=== PATIENT | female | born 1995 | race Caucasian/White ===

== ENCOUNTER 2018-08-27 12:58 | Outpatient (CLI) | payer BC ==
--- NOTE | 2018-08-31 14:07 | OBOUT ---
DATE: 08/27/2018 DATE AND TIME OF NST: Date: 08/27/2018. Time: 1410 hours to 1430 hours. REASON FOR NST: 1. Intrauterine at 35 weeks. 2. Gestational diabetes mellitus - diet controlled. 3. Rh negative, RhoGAM given appropriately. 4. G2, P1-0-0-1. 5. Previous , requests repeat low transverse . NST INTERPRETATION: During this time period, heart tone baseline is approximately 130, and monitoring has some broken up areas, but there are at least two 15 x 15 beat per minute accelerations making this strip reactive and also noted to be reassuring. Tocometer reveals potential of 5 contractions during this time period, none felt by the patient. movement documented. ASSESSMENT/PLAN: 1. Non-stress test - reactive and reassuring. 2. Tocometer with contractions. PLAN: Continue testing. We will continue to follow clinically and closely. As part of the workup, she did have a biophysical profile, scores a 10/10 with the above, ANNA was 18 cm, and estimated weight on ultrasound was 2910 g, 6 pounds 7 ounces. Please see clinic notes for further details as well. We will continue testing. [facility] /[id number]
== END 2018-08-27 15:00 | disposition home or self-care (01) ==
LOC: DL.US 12:58
PROVIDERS: ATTEND Family Medicine
DX: O24.419 Gestational diabetes mellitus in pregnancy, unspecified control (principal); Z3A.36 36 weeks gestation of pregnancy; O24.410 Gestational diabetes mellitus in pregnancy, diet controlled; O34.219 Maternal care for unspecified type scar from previous cesarean delivery; Z3A.35 35 weeks gestation of pregnancy
CPT/HCPCS: 59025; 76816; 76819

== ENCOUNTER 2018-08-28 23:31 | Inpatient (IN) | payer BC ==
[2018-08-29] MEDS ORDERED: Naloxone 2 MG/2 ML Syringe IVPUSH PRN (00:39)
[2018-08-29] MEDS ORDERED: Ondansetron 4 MG/2 ML SDV IV PRN (00:39)
[2018-08-29] MEDS ORDERED: diphenhydrAMINE 50 MG/ML SDV IVPUSH PRN (00:39)
[2018-08-29] MEDS ORDERED: ePHEDrine 50 MG/ML SDV IVPUSH PRN (00:39)
[2018-08-29] MEDS ORDERED: Measles, Mumps & Rubella Vaccine 0.5 ML SDV SUBCUT ONE (00:39)
[2018-08-29] MEDS ORDERED: Carboprost Tromethamine 250 MCG/1 ML Amp IM ONE (00:39)
[2018-08-29] MEDS ORDERED: Citric Acid/Sodium Citrate Solution 30 ML Cup PO ONE (00:39)
[2018-08-29] MEDS ORDERED: Methylergonovine 0.2 MG/1 ML Amp IM PRN (00:39)
[2018-08-29] MEDS ORDERED: Misoprostol 400 MCG (4 X 100 MCG TAB) RECTAL PRN (00:39)
[2018-08-29] MEDS ORDERED: Acetaminophen/oxyCODONE 325-5 MG Tab PO PRN ×2 (00:39)
[2018-08-29] MEDS ORDERED: ceFAZolin 2 GM in Premix Bag 1 BAG IV ONE (00:39)
[2018-08-29] MEDS ORDERED: Sodium Chloride 0.9% 10 ML Syringe FLUSH PRN (00:39)
[2018-08-29] MEDS ORDERED: Tranexamic Acid 1,000 MG in Sodium Chloride 0.9% 100 ML IV PRN ×4 (00:39)
[2018-08-29] MEDS ORDERED: Acetaminophen 325 MG Tab PO PRN (00:39)
[2018-08-29] MEDS ORDERED: Lactated Ringers 1,000 ML IV SCH ×2 (00:45)
[2018-08-29] MEDS ORDERED: Oxytocin/Normal Saline 30 UNIT/500 ML BAG IV SCH ×2 (00:45→05:15)
[2018-08-29] MEDS: Lactated Ringers 1,000 ML IV SCH ×3 (01:14→05:58)
[2018-08-29] MEDS: Simethicone 80 MG Tab.Chew PO SCH ×4 (08:49→21:08)
[2018-08-29] MEDS: Ketorolac 30 MG/ML SDV IVPUSH SCH ×3 (08:49→21:05)
[2018-08-29] MEDS: Prenatal Multivitamin with Calcium/Folic Acid/Iron Tab PO SCH (08:49)
[2018-08-29] MEDS: Docusate Sodium 100 MG Cap PO PRN ×2 (13:58→21:08)
[2018-08-30] MEDS ORDERED: Ibuprofen 800 MG Tab PO PRN (04:30)
[2018-08-30] MEDS: Docusate Sodium 100 MG Cap PO PRN (09:08)
[2018-08-30] MEDS: Prenatal Multivitamin with Calcium/Folic Acid/Iron Tab PO SCH (09:08)
[2018-08-30] MEDS: Simethicone 80 MG Tab.Chew PO SCH (09:09)
[2018-08-30] MEDS ORDERED: Morphine PF 1 MG/ML Amp ONE (12:14)
[2018-08-30] MEDS ORDERED: Ondansetron 4 MG/2 ML SDV IV ONE (12:14)
[2018-08-30] MEDS ORDERED: ePHEDrine 50 MG/ML SDV IV ONE (12:14)
[2018-08-30] MEDS ORDERED: Ketorolac 30 MG/ML SDV IVPUSH ONE (12:14)
--- NOTE | 2018-08-31 11:01 | HP ---
PATIENT IDENTIFICATION: Gina Chung is a 22-year-old G2, P1-0-0-1, intrauterine at 35 and 1/7th weeks by 9-week ultrasound, who presents with vaginal leaking. HISTORY OF PRESENT ILLNESS: The patient presents with vaginal leaking, described as clear in nature, started at 11:30 p.m. on the date of admission, occurred while she was lying down, soaked through all her clothing as well as her bedding and continued leaking thereafter. Associated with this has been some contractions that are getting stronger, felt in the lower abdomen, and coming more often. To put this in context, she had a previous , requests repeat low transverse ; gestational diabetes mellitus that is diet controlled; rh negative, received RhoGAM appropriately; GBS is pending in [place] and is rubella nonimmune with anemia of , and has allergies to amoxicillin and Zithromax but can take cephalosporins. Records were called for, reviewed as below, and supplemented by the patient's history. ANTEPARTUM LABORATORY DATA: ABO blood type A negative. Negative antibody. Rubella nonimmune. Syphilis antibody is nonreactive. Negative hepatitis B surface antigen. Negative hep C, HIV, GC, and Chlamydia. Wet prep within normal limits. One-hour GTT was 151 with 3-hour GTT being positive for gestational diabetes mellitus. Last hemoglobin charted 07/23/2018 at 10.8. OBSTETRICAL HISTORY: 02/23/2012, 40 and 5/7th weeks, delivered female via primary low transverse , weighing 3459 g, due to nonreassuring status. ALLERGIES: Amoxicillin and Zithromax listed, but can take cephalosporins and took them back in 02/2018 per chart review. Her allergies also listed as Zithromax that has an intolerance and not a true allergy. MEDICATIONS: vitamins and iron sulfate 325 b.i.d., as well as has been on Celexa. PAST MEDICAL/PAST SURGICAL HISTORY: Remarkable for as above. History of reactive airway disease and tonsillitis. FAMILY HISTORY: Mother with COPD. Maternal grandmother with cancer. Father with MS. Thyroid disease in a cousin. Negative family history of anesthesia problems, bleeding problems, or defects. SOCIAL HISTORY: Lives with her daughter and in [place]. Studying business in [place] in the spring. 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 Nonsmoker. No alcohol or drug use elicited. REVIEW OF SYSTEMS: Otherwise, reviewed and felt to be noncontributory other than the above. OBJECTIVE: Vital Signs: Blood pressure 135/83, heart rate 87. The patient feels afebrile. Appearance: Female, appears stated age, acting appropriate, nontoxic in appearance. HEENT: Head is atraumatic. EOMs intact. PERRLA. No scleral icterus. No obvious otorrhea or rhinorrhea. Mucous membranes moist. Neck: No obvious tenderness. Lungs: Clear to auscultation bilaterally. No increased work of breathing. Heart: S1 and S2. Regular rate and rhythm. Abdomen: Gravid. Pavel's indeterminate. Nontender and nondistended. Bowel sounds positive. No organomegaly, pulsatile masses, or hernias. No rebound, rigidity, or guarding. Monitors applied. Genitourinary: Normal external female genitalia. Normal position and presentation of the urethra. Vaginal exam reveals her to be 2 cm, 65% effaced, -1 station, vertex suspected, and clear copious fluid with gross rupture of membranes noted, leaking from the vaginal area. Extremities: Trace to 1+ pitting edema to proximal tibia. Deep tendon reflexes 1 to 2 out of 4 bilaterally and symmetric in the lower extremities. Psychiatric: Mood and affect congruent. Judgment and insight intact. Skin: Without any cyanosis, clubbing, or jaundice. LABORATORY DATA: Pending is a CBC, a blood glucose, and type and screen. heart tones are currently in the 140s to 150s baseline with recurrent variable decelerations at this point in time. At approximately 0006 hours to 0010 hours, there is approximately a 3-minute deceleration down in the 90s. Tocometer reveals contractions every 2 to 5 minutes apart. ASSESSMENT: 1. Intrauterine at 35 and 1/7th weeks by 9-week ultrasound. 2. Spontaneous rupture of membranes at 11:30 p.m. on the date of admission. 3. Contractions with cervical change. 4. Previous , requests repeat low transverse section. 5. Gestational diabetes mellitus - diet controlled. 6. Rh negative. Received RhoGAM appropriately. 7. Group B Streptococcus unknown and pending in [place]. 8. Rubella nonimmune. 9. History of anemia of . CBC to be drawn. 10.Allergies to amoxicillin and Zithromax with no true allergy listed to Zithromax in the chart, and the patient has taken cephalosporins in the past. 11.G2, P1-0-0-1. 12.Concerns with heart tones noted with a deceleration as well as recurrent variable decelerations with the previous section. 13.Mood disorder, requiring Celexa and currently on 20 mg daily in regard to this. PLAN: Did discuss with the patient given her heart tones and concerns with previous , request repeat low transverse , with contractions with cervical change, that she is not felt to be a transfer candidate. I did discuss this case with the commercial pest control representative, Dr. Olguin in [place]. He initially was going to send his team, but then the charge nurse in [place] told him that the patient's would not qualify for team to be here and would prefer us to deliver the baby and then call the NICU if we need help. I did discuss this with the patient. She understands and agrees, and we will deliver as soon as OR crew is ready and available and follow baby thereafter. I did discuss with the patient potential need for transfer to higher level of care in regard to her baby as well as separation in regard to the need for NICU if need be. She understands and agrees. I did discuss the risks, benefits, alternatives, complications of including, but not limited to, infection, bleeding, damage to internal organs such as bowel, bladder, tubes, uterus, ovaries, and sometimes fetus rarely needing a blood transfusion or further surgery, and rarer maternal or . She understands and agrees, and wishes to proceed. Verbal and written consent were obtained. Questions were answered. We will proceed as soon as OR crew is available. Last oral intake was at 2300 hours with fluid and prior to that she said 5:00 p.m. was the last time she ate anything solid. Her last blood sugar was between 70 and 90 to her recollection and that was later evening of the date of admission. [facility] /[id number] MTDD
--- NOTE | 2018-08-31 11:37 | PN ---
DATE: 08/30/2018 Postop day #1, status post repeat low transverse section. SUBJECTIVE: The patient is tolerating p.o., ambulating, urinating, passing flatus. Glass was removed earlier this morning. OBJECTIVE: Vital Signs: Temperature 97.8, heart rate 85, blood pressure 111/67, respiratory rate 20. Lungs: Clear to auscultation. Heart: S1-S2. Regular rate and rhythm. Abdomen: Firm uterus -1 below umbilicus. Aquacel dressing appears dry and intact. Extremities: Trace peripheral edema. No calf pain. LABORATORY DATA: White cell count 7.2, hemoglobin 10.2, dropped from 11 preoperatively, platelets of 142,000 dropped from 173,000 preoperatively. ASSESSMENT AND PLAN: 1. Postoperative day #1, status post repeat low transverse section. 2. Anemia of acute blood loss. Hemoglobin dropping down to 10.2. 3. Gestational/ thrombocytopenia. PLAN: We will continue to follow clinically and closely. Recheck CBC tomorrow. Did discuss with the patient's potential discharge for tomorrow as she wanted to get discharged to go see her baby who is in [place] at the NICU. The patient understands and agrees with the above treatment plan. [facility] /[id number]
--- NOTE | 2018-08-31 12:52 | OR ---
DATE: 08/29/2018 PREOPERATIVE DIAGNOSES: 1. Intrauterine at 35 and 2/7th weeks by 9-week ultrasound. 2. Spontaneous rupture of membranes at 2330 hours on 08/28/2018. 3. Contractions with cervical change. 4. Previous , requests repeat low transverse . 5. Not a transfer candidate. 6. Gestational diabetes mellitus - diet controlled. 7. Rh negative and received RhoGAM appropriately during the . 8. Group B streptococcus pending in [place]. 9. Rubella nonimmune. 10.Anemia of with hemoglobin 11 upon admission. 11.Allergies to amoxicillin and Zithromax, but can take cephalosporins. 12.Concerns with heart tones. 13.Mood disorder requiring Celexa 20 mg daily during the . 14. 2, para 1-0-0-1. POSTOPERATIVE DIAGNOSES: 1. Intrauterine at 35 and 2/7th weeks by 9-week ultrasound - delivered. 2. Spontaneous rupture of membranes at 2330 hours on 08/28/2018. 3. Contractions with cervical change. 4. Previous , requests repeat low transverse . 5. Not a transfer candidate. 6. Gestational diabetes mellitus - diet controlled. 7. Rh negative and received RhoGAM appropriately during the . 8. Group B streptococcus pending in [place]. 9. Rubella nonimmune. 10.Anemia of with hemoglobin 11 upon admission. 11.Allergies to amoxicillin and Zithromax, but can take cephalosporins. 12.Concerns with heart tones. 13.Mood disorder requiring Celexa 20 mg daily during the . 14. 2, para 1-0-0-1. 15.Nuchal cord x1, reduced bluntly with delivery. 16.Thin lower uterine segment. PROCEDURE PERFORMED: NST followed by repeat low transverse . MANAGER ADULT: Jefe Latham M.D. ANESTHESIA: Spinal. START TIME: 0203 hours. UTERINE INCISION: 0207 hours. DELIVERY TIME: 0207 hours. STOP TIME: 0229 hours. ESTIMATED BLOOD LOSS: 500 mL. IV FLUIDS: 700 mL. URINE OUTPUT: 100 mL and clear yellow. FINDINGS: Male with scores 7 and 8, weight pending. DESCRIPTION OF PROCEDURE IN DETAIL: After proper consent was obtained, the patient was brought to the operating room, where spinal anesthetic was administered. Glass was placed in preop under sterile conditions. Abdomen was prepped and draped in a normal sterile fashion with the patient was placed in supine position with left lateral tilt. Skin incision was then made over the lower abdomen in transverse Pfannenstiel- type fashion over previous scar. This was carried down to the fascia and scored in the midline. Subcutaneous tissue was raked laterally with Coffey retractors and fascial incision was extended in a transverse fashion using curved Barksdale's. Dominga clamps x2 were used to grasp the superior aspect of the fascia, and rectus muscles were dissected from the fascia using sharp and blunt technique. In a similar fashion, Dominga clamps x2 were used to grasp the inferior portion of the incision, and rectus and pyramidalis muscles were dissected from the fascia using sharp and blunt technique. Rectus muscles were in the midline with blunt technique. Abdominal cavity was entered in blunt technique, and incision was extended superiorly and inferiorly with blunt technique. Dave O large retractor was then introduced and used. Vesicouterine peritoneum was identified and incised in transverse fashion, and bladder flap was made digitally. There was minimal scar tissue with lysis of adhesions on the left portion around this area. Subsequently, incision was made on the lower uterine segment, which was noted to be thin. Uterus was entered sharply and clear fluid returned. Uterine incision was then extended in transverse fashion using blunt technique. vertex was then delivered through the incision followed by rest of the infant with minimal difficulty, with nuchal cord x1 reduced bluntly with delivery. Mouth and nares were suctioned. Cord was doubly clamped and cut. Infant was brought to team for resuscitation. Then, approximately 10 mL of cord blood was obtained for labs. Placenta was then delivered with gentle cord traction and fundal massage. Uterine cavity was then cleared of all blood clots and debris with lap sponge. Sow clamps were used to grasp the uterine incision, this was closed in a running locked fashion and tied at lateral margins with 1-0 Vicryl. Left of midline, 2 [id number] stitches were applied for hemostasis and reinforcement of the thin lower uterine segment scar. First inspection of the uterine incision revealed hemostasis. Dave O retractor was then removed, and paracolic gutters were then cleared of all blood clots and debris with lap sponge. Anterior cul-de-sac was then irrigated copiously and all blood clots and debris removed. Second and final inspection of the uterine incision and anterior cul-de-sac revealed hemostasis. Rectus muscles were then reapproximated in midline with [id number] stitch using 1-0 Vicryl. Subfascial tissues were found to be hemostatic. Fascia was closed in a running fashion and tied at lateral margins with 0 looped PDS. Subcutaneous tissue was irrigated copiously, hemostasis reassured. Skin was reapproximated with medium ssuanne. Sterile Aquacel dressing was applied. Uterine fundus was firm and massaged at the conclusion of the case -2 below the umbilicus. No immediate complications were noted. Sponge, lap, and needle counts were correct. The patient received 2 g of Ancef preoperatively, Pitocin per protocol, and will receive Toradol at the conclusion of the case for pain control. Mother and are currently stable at the time of dictation. [facility] /[id number]
--- NOTE | 2018-08-31 14:04 | OBOUT ---
DATE: 08/28/2018 DATE AND TIME OF NST: Date: 08/28/2018. Time: 2350 hours to midnight 0000 hours. REASON FOR NST: 1. Intrauterine at 35 and 1/7th weeks by 9-week ultrasound. 2. Spontaneous rupture of membranes with gross rupture of membranes. 3. Contractions with cervical change. 4. Previous , requests repeat low transverse section. 5. Gestational diabetes mellitus - diet controlled. 6. Rh negative, received RhoGAM appropriately. 7. GBS unknown and pending in [place]. 8. Rubella nonimmune. 9. History of anemia of . 10.History of allergies to Amoxicillin and Zithromax, but can take cephalosporins by chart review. 11.G2, P1-0-0-1. NST INTERPRETATION: During this time period, heart tone baseline is approximately 140 to 145, and there are at least two 15 x 15 beat per minute accelerations making this strip reactive. It is also noted to be reassuring. Tocometer reveals potential of 3 contractions felt by the patient in the lower abdomen. ASSESSMENT/PLAN: 1. Nonstress test - reactive and reassuring. 2. Tocometer with contractions. PLAN: Please see admit history and physical for further details. At the current time of dictation, the patient continues to have contractions. She feels them in the lower abdomen. She has cervical change to 2 cm, and did discuss with her, her situation as well as monitoring of the baby, which did reveal some later on recurrent decelerations and another deceleration that lasted about 3 minutes. Did discuss with her not feeling that she is a transfer candidate and proceeding with repeat low transverse here. NICU team in [place] has been called and initially thought was that they would come here for delivery; however, they do not meet the criteria according to the charge nurse there, so we will proceed with delivery here, call if we need their help after delivery of the baby, and we will continue to follow clinically and closely. I did discuss with the patient, she understands and agrees with the above treatment plan. I did discuss her potential risk of need for baby to be in the NICU and potential need for transfer to a higher level care for her baby. She understands and agrees. I did discuss her risks potentially with transfer as well and findings with heart tones as well as monitoring. [facility] /[id number]
--- NOTE | 2018-09-01 09:43 | DISCH ---
ADMITTING DIAGNOSES: 1. Intrauterine at 35 and 1/7th weeks by 9-week ultrasound. 2. Spontaneous rupture of membranes. 3. Contractions with cervical change - not a transfer candidate. 4. Previous , requests repeat low transverse . 5. Gestational diabetes mellitus - diet controlled. 6. Rh negative - received RhoGAM appropriately. 7. Group B Streptococcus unknown and pending in [place]. 8. Rubella nonimmune. 9. Anemia of . Hemoglobin 11 upon admission. 10. 2, para 1-0-0-1. 11.Allergy to amoxicillin, but can take cephalosporins, and allergy to Zithromax, which is an intolerance. 12.Concerns with heart tones. 13.Mood disorder, on Celexa 20 mg daily. DISCHARGE DIAGNOSES: 1. Intrauterine at 35 and 2/7th weeks by 9-week ultrasound - delivered. 2. Spontaneous rupture of membranes. 3. Contractions with cervical change - not a transfer candidate. 4. Previous , requests repeat low transverse . 5. Gestational diabetes mellitus - diet controlled. 6. Rh negative - received RhoGAM appropriately. 7. Group B Streptococcus unknown and pending in [place]. 8. Rubella nonimmune. 9. Anemia of . Hemoglobin 11 upon admission. 10. 2, para 1-0-0-1. 11.Allergy to amoxicillin, but can take cephalosporins, and allergy to Zithromax, which is an intolerance. 12.Concerns with heart tones. 13.Mood disorder, on Celexa 20 mg daily. 14.Nuchal cord x1, reduced bluntly with delivery. 15.Thin lower uterine segment. PROCEDURE PERFORMED: NST followed by repeat low transverse . Procedure performed by Korey Harrington M.D. HISTORY OF PRESENT ILLNESS: Please see H and P. SUMMARY OF HOSPITAL COURSE: The patient was admitted on the above date with the above diagnoses, had spontaneous rupture of membranes with contractions and cervical change and concerns with heart tones, not felt to be a transfer candidate, and in light of her previous , requests repeat low transverse . This was subsequently performed. Initially plans were to wait for NICU to come and be here available with delivery if possible. However, discussion with magneto repairer after this initial decision was made, revealed the charge nurse told him that he would not be able to accept the patient until after delivery and then may send a transfer team at that time. After this was noted, we proceeded to the OR as soon as crew was ready and available, and proceeded with repeat low transverse done under spinal with an EBL of 500 mL, yielding a male, scores 7 and 8, weighing 6 pounds 5 ounces. Please see operative report for further details. Postop day #1, which is date of discharge as date of delivery was on 08/29/2018, the patient was tolerating p.o.'s, ambulating, urinating, passing flatus. Initial evaluation was done, and then later in the morning, the patient wanted to leave urgently due to her baby status in the NICU in [place]. Therefore, she was sent home. Discharge planning was reviewed with the patient through nurses and through discharge plans and orders. CONDITION ON DISCHARGE COMPARED TO CONDITION ON ADMISSION: Improved. DISCHARGE INSTRUCTIONS: 1. Diet: As tolerated. 2. Activity: No lifting more than 20 pounds, no sit-ups, straining, and pelvic rest for the next 6 weeks with immediate return to fertility discussed with the patient. 3. Reasons to return or go to the emergency room were discussed with the patient in detail including, but not limited to, temperature greater than 100.4, foul-smelling discharge, red hot tender breasts, or increased vaginal bleeding, or increasing pain, drainage, or redness in and around the incision. DISCHARGE MEDICATIONS: [id number] Tylenol or ibuprofen for pain, iron sulfate 325 b.i.d. x6 weeks, and Percocet 5/325 one to two q.6 hours p.r.n., #30, no refills. Discussed the use of this medications, wanted and adverse effects, as well as precautions with driving. Plan on following up later in the week for staple removal on Friday with Dr. Harrington in the clinic on 09/02/2018. Plan as above. The patient understood and agreed. [facility] /[id number]
== END 2018-08-30 12:15 | disposition home or self-care (01) | DRG 540 ==
LOC: DL.OBCHECK 23:31 → DL.MS 08-29 00:26 → OBSVTOIN 08-29 02:07
PROVIDERS: ADMIT Family Medicine; ATTEND Family Medicine
PROC: 10D00Z1 Extraction of Products of Conception, Low, Open Approach (ICD-10-PCS; principal; 2018-08-29)
PROC: 4A1HXCZ Monitoring of Products of Conception, Cardiac Rate, External Approach (ICD-10-PCS; 2018-08-29)
DX: O34.211 Maternal care for low transverse scar from previous cesarean delivery (principal); O69.81X0 Labor and delivery complicated by cord around neck, without compression, not applicable or unspecified; O99.344 Other mental disorders complicating childbirth; F39 Unspecified mood [affective] disorder; O24.420 Gestational diabetes mellitus in childbirth, diet controlled; F32.9 Major depressive disorder, single episode, unspecified; O99.03 Anemia complicating the puerperium; D62 Acute posthemorrhagic anemia; O72.3 Postpartum coagulation defects; Z37.0 Single live birth; D69.6 Thrombocytopenia, unspecified; Z3A.35 35 weeks gestation of pregnancy; Z23 Encounter for immunization
CPT/HCPCS: 36415; 80305-QW; 82947; 85025; 85027; 86850; 86900; 86901; 90471; 90707; 94010; A4217; A9270-GY; J0690; J1885; J2274; J2405; J2590; J7120